=== PATIENT | female | born 2000 | race Caucasian/White ===

== ENCOUNTER 2021-09-21 18:16 | Emergency (ER) | payer OTHER ==
[~2021-09-21] VITALS: Ht 167.7 cm; Wt 81.6 kg
[2021-09-21 18:18] VITALS: BP 130/85
--- NOTE | 2021-09-21 18:26 | ED Upper Extremity ---
General Chief Complaint: Laceration Stated Complaint: HAND LAC Source: patient Exam Limitations: no limitations (PINO DON) History of Present Illness Date Seen by Provider: Sep 21, 2021 Time Seen by Provider: 18:25 Initial Comments Patient is a 20-year-old female presents ED with laceration and wound to her lef t pointer and middle finger. She states her finger got caught in between a gate and a cow. This occurred 1 hour ago. She reports laceration to her left middle finger. Nail involvement. Distal numbness and tingling with decreased range of motion. Open laceration. Not up-to-date on her tetanus. Was brought to ED by EMS for further evaluation. (PINO DON) Allergies and Home Medications Allergies Coded Allergies: Penicillins (Verified Allergy, Unknown, 09/21/21) Patient Home Medication List Home Medication List Reviewed: Yes (PINO DON) Clindamycin HCl (Clindamycin HCl) 300 Mg Capsule, 300 MG PO TID Prescribed by: REYES CROCKER on 09/21/211923 Hydrocodone/Acetaminophen (Hydrocodone-Acetamin 5-325 mg) 5 Mg-325 Mg Tablet, 1 TAB PO Q4H PRN for PAIN-MODERATE (5-7) Prescribed by: REYES CROCKER on 09/21/211924 Review of Systems Constitutional: No chills, No diaphoresis, No malaise, No weakness EENTM: No hearing loss, No ear pain, No blurred vision, No double vision Respiratory: No cough, No dyspnea on exertion Cardiovascular: No chest pain Gastrointestinal: No abdominal pain, No diarrhea, No nausea, No vomiting Genitourinary: No decreased output, No discharge Musculoskeletal: joint pain, muscle pain, muscle stiffness Skin: change in color (Laceration to the right distal middle finger with nail involvement.), other (Superficial laceration on the palmar side of the left index finger) (PINO DON) All Other Systems Reviewed Negative Unless Noted: Yes (PINO DON) Physical Exam Vital Signs Vital Signs - First Documented 09/21/21 18:18 Temp 36.4 Pulse 111 Resp 16 B/P (MAP) 130/85 (100) Pulse Ox 98 (JOHANNYASUNCION K DO) Vital Signs Capillary Refill : (PINO DON) Height, Weight, BMI Height: '" Weight: lbs. oz. kg; BMI Method: General Appearance: WD/WN, no apparent distress HEENT: PERRL/EOMI, normal ENT inspection, TMs normal, pharynx normal Neck: non-tender, full range of motion, supple, normal inspection Cardiovascular: regular rate, rhythm, no edema, no gallop, no JVD Respiratory: chest non-tender, lungs clear, normal breath sounds, no respiratory distress, no accessory muscle use Gastrointestinal: normal bowel sounds, non tender, soft, no organomegaly Back: normal inspection, no CVA tenderness Shoulder: normal inspection Elbow/Forearm: normal inspection, non-tender, no evidence of injury Wrist: Yes normal inspection, Yes non-tender, Yes no evidence of injury Hand: laceration (Open laceration to the distal left middle finger with nail involvement. Palmar L-shaped laceration to the palmar side of the left index finger) Neurologic/Tendon: normal sensation Skin: other (Laceration to the left distal middle finger and index finger) (PINO DON) Procedures/Interventions Wound Location: Upper Extremities Other Wound Location distal third finger Wound Length (cm): 3 Wound's Depth, Shape: superficial, bone, sub Q Wound Explored: clean Irrigated w/ Saline (ccs): 500 Betadine Prep?: Yes Anesthesia: 1% Lidocaine Volume Anesthetic (ccs): 4 Wound Debrided: minimal Suture: Ethlion Suture Size: 5-0 Number of Sutures: 10 Layer Closure?: 1 Sterile Dressing Applied?: Yes (PINO DON) Progress/Results/Core Measures Results/Orders Vital Signs/I&O 09/22/21 00:00 Intake Total 1150 ml Balance 1150 ml (ASUNCION ORLANDO DO) Departure Communication (PCP) Patient presents to ED with crush injury to her left distal middle finger. This resulted after a cow smashed it inbetween a gate. Concerning for open fracture. She is allergic to penicillins resulted in airway compromise. Patient Was started on clindamycin. Extensive irrigation here. 10 Ethilon sutures were placed here in the ED. Had to suture through the nail. X-ray did show a soft tissue swelling acute displaced fracture of the distal phalanx of the third finger. She did have normal active range of motion with flexion and extension. Discussed with patient she may lose the nail. There was a small laceration to the palmar side of the second finger but did not need closure. No active bleeding. Normal active range of motion. Neurovascular intact. X-ray was negative of the second digit. Patient Was given fentanyl in route by EMS. Digital block with complete improvement of pain. Will discharge with pain medication and clindamycin. Orthopedic follow-up in 7 to 10 days for reevaluation of the wound and fracture. Sutures need to be removed in 10 to 12 days. Fingers were placed in a splint to allow healing. Discussed wound care with Neosporin topical twice a day. (PINO DON) Impression Primary Impression: Finger fracture Additional Impression: Finger laceration Disposition: 01 HOME, SELF-CARE Condition: Stable Departure-Patient Inst. Decision time for Depature: 19:23 (PINO DON) Referrals: DALILA HOLLAND MD UNKNOWN (PCP) Primary Care Physician Patient Instructions: Finger Fracture (DC) Scripts Hydrocodone/Acetaminophen (Hydrocodone-Acetamin 5-325 mg) 5 Mg-325 Mg Tablet 1 TAB PO Q4H PRN for PAIN-MODERATE (5-7), #8 TAB Prov: PINO DON 09/21/21 Clindamycin HCl (Clindamycin HCl) 300 Mg Capsule 300 MG PO TID for 7 Days, #21 CAP Prov: PINO DON 09/21/21 ATTENDING PHYSICIAN NOTE: I WAS PHYSICALLY PRESENT ER PHYSICIAN, BUT I WAS NOT INVOLVED IN ANY DECISION MAKING OR ANY CARE OF THIS PATIENT, AND I AM NOT COLLABORATING PHYSICIAN. (ASUNCION [place]LANDO DO) PINO DON Sep 21, 2021 18:26 ASUNCION [place]O DO Sep 22, 2021 18:23
[2021-09-21] MEDS ORDERED: TETANUS,DIPTH,PERTUSS P/F (BOOSTRIX) 0.5 ML VIAL IM ONE (18:30)
[2021-09-21] MEDS ORDERED: CLINDAMYCIN 600 MG/50 ML IVPB 50 ML IV ONE (18:30)
--- NOTE | 2021-09-21 19:01 | Diagnostic Imaging Report ---
EXAMINATION: Left 3rd finger radiographs. EXAM DATE: 09/21/2021 6:55 PM. COMPARISON: None available. HISTORY: Finger pain. TECHNIQUE: 3 views. FINDINGS: There is a mildly displaced fracture of the distal 3rd phalanx. There are a few osseous fragments along the volar soft tissues. The joint spaces are normal. There is soft tissue swelling. IMPRESSION: Soft tissue swelling and acute displaced fractures of the distal phalanx of the 3rd finger. Dictated by: Dictated on workstation # [id number]
--- NOTE | 2021-09-21 19:01 | Diagnostic Imaging Report ---
EXAMINATION: Left 2nd finger radiographs. EXAM DATE: 09/21/2021 6:55 PM. COMPARISON: None available. HISTORY: Left 2nd finger pain. TECHNIQUE: 2 views. FINDINGS: There is no acute fracture, dislocation, or destructive osseous process. The joint spaces are normal. The soft tissues are normal. IMPRESSION: No acute osseous abnormality. Dictated by: Dictated on workstation # [id number]
[2021-09-21] MEDS ORDERED: CLIN-144 PO (19:24)
[2021-09-21] MEDS ORDERED: ACHD5005 PO (19:24)
== END 2021-09-21 19:58 | disposition home or self-care (01) ==
LOC: EDUNIT# 18:16 → ER 18:17
DX: S62.633A Displaced fracture of distal phalanx of left middle finger, initial encounter for closed fracture (principal); S61.217A Laceration without foreign body of left little finger without damage to nail, initial encounter; Z28.310 Unvaccinated for COVID-19; Z23 Encounter for immunization; W23.1XXA Caught, crushed, jammed, or pinched between stationary objects, initial encounter
CPT/HCPCS: 12042; 73140; 90715

== ENCOUNTER → 2021-10-02 | Outpatient (CLI) | payer OTHER ==
[~2021-10-02] MED LIST: ACHD5005 PO; CLIN-144 PO
--- NOTE | 2021-10-02 16:13 | Diagnostic Imaging Report ---
EXAMINATION: Left hand 3 views HISTORY: Laceration COMPARISON: 09/21/2021 FINDINGS: There is a skin injury at the tip of the middle finger. There is an unchanged mildly displaced tuft fracture. No dislocation. No other fracture is seen. IMPRESSION: 1. Unchanged mildly displaced tuft fracture of the middle finger distal phalanx. Dictated by: Dictated on workstation # [id number]
== END ==
LOC: ORTHO 14:05
PROVIDERS: ATTEND Orthopaedic Surgery
DX: S61.213A Laceration without foreign body of left middle finger without damage to nail, initial encounter (principal); X58.XXXA Exposure to other specified factors, initial encounter
CPT/HCPCS: 73130; G0463; 99203

== ENCOUNTER → 2021-10-18 | Outpatient (CLI) | payer OTHER | LOC: ORTHO 14:36 | PROVIDERS: ATTEND Orthopaedic Surgery | DX: S62.639A Displaced fracture of distal phalanx of unspecified finger, initial encounter for closed fracture (principal); X58.XXXA Exposure to other specified factors, initial encounter ==

== ENCOUNTER → 2021-11-20 | Outpatient (CLI) | payer OTHER ==
--- NOTE | 2021-11-20 20:37 | Diagnostic Imaging Report ---
INDICATION: Follow-up middle finger laceration EXAMINATION: Left hand 11/20/2021 COMPARISON: 10/02/2021. FINDINGS: 3 views of the hand redemonstrate the fracture at the tip of the 3rd distal phalanx. Mild interval changes of healing noted with incomplete fusion seen at this time. The surrounding soft tissue slightly prominent. No radiopaque foreign bodies appreciated. No other fractures identified. IMPRESSION: 1. Healing distal 3rd finger fracture. Dictated by: Dictated on workstation # [id number]
== END ==
LOC: ORTHO 14:18
PROVIDERS: ATTEND Orthopaedic Surgery
DX: Z47.89 Encounter for other orthopedic aftercare (principal); S62.633D Displaced fracture of distal phalanx of left middle finger, subsequent encounter for fracture with routine healing; J45.909 Unspecified asthma, uncomplicated; X58.XXXD Exposure to other specified factors, subsequent encounter
CPT/HCPCS: 73130; G0463; 99213

== ENCOUNTER → 2021-12-20 | Outpatient (CLI) | payer OTHER | LOC: ORTHO 08:25 | PROVIDERS: ATTEND Orthopaedic Surgery | DX: S62.639D Displaced fracture of distal phalanx of unspecified finger, subsequent encounter for fracture with routine healing (principal); X58.XXXD Exposure to other specified factors, subsequent encounter | CPT/HCPCS: 99213 ==

== ENCOUNTER → 2022-01-31 | Outpatient (CLI) | payer OTHER | LOC: ORTHO 08:30 | PROVIDERS: ATTEND Orthopaedic Surgery | DX: S62.639D Displaced fracture of distal phalanx of unspecified finger, subsequent encounter for fracture with routine healing (principal); X58.XXXD Exposure to other specified factors, subsequent encounter | CPT/HCPCS: 99213 ==